=== PATIENT | male | born 1985 | race Caucasian/White ===

== ENCOUNTER → 2019-07-19 | Outpatient (CLI) | payer OTHER ==
[~2019-07-19] MED LIST: ADVAIR IH; ALBUTEROL SULFAT8 MG; AMOXICILLIN 8751 TAB PO; DOLOPHINE HCL5 MG PO; FLEXERIL10 MG PO; FOLIC ACID 11 MG/TA1 PO; K-DUR 10 MEQ T10 MEQ PO; K-DUR20 MEQ PO; LASIX 40MG TABL40 MG PO; LIBRIUM 25M25 MG/CAP PO; MULTI VITAMINS1 TAB PO; MULTIPLE VITAMI1 CAP PO; NEURONTIN300 MG/CAP PO; NO HOME MEDICATIONS; NORCO 325 MG-7.1 TAB PO; NORVASC2.5 MG PO; PHOS LO PO; PROVENTIL0.09 MG/A1 IH; RT ADVAIR 228 DISKUS IH; SODIUM BICARBO650 MG PO; TENORMIN100 MG PO; THIAMINE 1100 MG/TAB PO; ZOLOFT 50MG50 MG PO
== END ==
LOC: COL.VAS 07-08 12:30
DX: N18.4 Chronic kidney disease, stage 4 (severe) (principal)

== ENCOUNTER 2020-01-28 07:08 | Day surgery (SDC) | payer MEDICAID ==
[~2020-01-28] VITALS: Ht 182.9 cm; Wt 105.7 kg
[2020-01-28 08:04] VITALS: BP 188/113; PULSE 59; TEMP 98.2
[2020-01-28 08:35] VITALS: BP 184/98; PULSE 61
--- NOTE | 2020-01-28 08:35 | NUR ---
Pt to GI bay 4 via cart from ENDO. Pt awake and alert. Denies pain or nausea. Water, juice and muffin given per pt request. Will continue to monitor. Call light within reach.
[2020-01-28 08:50] VITALS: BP 185/92; PULSE 60
--- NOTE | 2020-01-28 08:50 | NUR ---
Pt tolerating food and fluids without difficulties. Denies needs. Call light within reach.
[2020-01-28 09:05] VITALS: BP 183/126; PULSE 64
--- NOTE | 2020-01-28 09:05 | NUR ---
Discharge instructions reviewed. Pt voices understanding. IV site discontinued with all parts intact. Pt up to dress. Call light within reach.
--- NOTE | 2020-01-28 09:15 | NUR ---
Pt escorted to private car via wheel chair. Pt accompanied home by his mother.
== END 2020-01-28 09:15 | disposition home or self-care (01) ==
LOC: SDCO 07:08
DX: I85.10 Secondary esophageal varices without bleeding (principal); K70.31 Alcoholic cirrhosis of liver with ascites; K29.30 Chronic superficial gastritis without bleeding; I10 Essential (primary) hypertension; F17.210 Nicotine dependence, cigarettes, uncomplicated; B19.20 Unspecified viral hepatitis C without hepatic coma; J44.9 Chronic obstructive pulmonary disease, unspecified; G89.29 Other chronic pain; Z20.828 Contact with and (suspected) exposure to other viral communicable diseases; G93.40 Encephalopathy, unspecified; Z88.8 Allergy status to other drugs, medicaments and biological substances
CPT/HCPCS: J2704; J7120

== ENCOUNTER 2020-04-04 05:02 | Inpatient (IN) | payer MEDICAID ==
[~2020-04-04] VITALS: Ht 182.9 cm; Wt 93.6 kg
[2020-04-04 05:55] LABS: BASO % 0.6 % (0.0-2.0); EOS % 0.6 % (0-4.0); GRAN # 2.7 (1.4-6.5); GRAN % 75.5 % (42.2-75.2); HEMATOCRIT 37.2 % (42.0-52.0); LYMPH # 0.6 (1.2-3.4); LYMPH % 16.8 % (20.0-51.0); MEAN CELL VOLUME 94 fl (80.0-100.0); MEAN CORPUSCULAR HEMOGLOBIN 33 pg (27.0-31.0); MEAN CORPUSCULAR HGB CONC 35 g/dl (33.0-37.0); MEAN PLATELET VOLUME 10.5 fl (7.4-10.4); MONO # 0.2 (0.1-0.6); MONO % 6.5 % (1.7-9.3); PLATELET COUNT 100 K/mm3 (130-400); RED BLOOD COUNT 3.97 M/mm3 (4.20-5.60); REDCELL DISTRIBUTION WIDTH-CV 14.6 % (11.5-14.5)
[2020-04-04 06:00] LABS: INR 1.6 (0.8-3.0); PROTHROMBIN TIME 18.5 SECONDS (9.7-12.8)
[2020-04-04 06:07] LABS: ALBUMIN 3.8 gm/dL (3.5-5.0); BILIRUBIN,TOTAL 4.2 mg/dL (0.0-1.0); CALCIUM 9.1 mg/dL (8.4-10.2); CREATININE, serum 1.46 (0.66-1.25); POTASSIUM 3.5 mmol/L (3.4-5.0); TOTAL PROTEIN 8.9 gm/dL (6.4-8.2)
[2020-04-04 08:03] LABS: COLLECTION METHOD CLEAN CATCH
[2020-04-04 08:09] LABS: MUCOUS Present /lpf; PH 5 (5-8); SQUAMOUS EPITHELIAL 0-2 /hpf; URINE APPEARANCE Clear; URINE BACTERIA Rare /hpf; URINE BILIRUBIN Negative (NEGATIVE); URINE BLOOD 1+ (NEGATIVE); URINE COLOR Amber; URINE GLUCOSE Negative (NEGATIVE); URINE KETONE Negative (NEGATIVE); URINE LEUKOCYTE ESTERASE Negative (NEGATIVE); URINE NITRATE Negative (NEGATIVE); URINE PROTEIN(semi-quant) 3+ (NEGATIVE); URINE RBC 20-50 /hpf
[2020-04-04 09:55] VITALS: BP 194/122; PULSE 55; TEMP 98.1
--- NOTE | 2020-04-04 10:37 | NUR ---
Patient alert and oriented complain of mid and right qualdrants pain. Patient sbp 193. completed history and assessment with patient. Patient unable to verify and clarify his home medication. plan to speak to patient family with patient approval about home medications. Call light within reach, patient independent with bathroom privilege and room ambulation. Patient requested pain medication for abdominal pain.
--- NOTE | 2020-04-04 11:57 | NUR ---
Patient received 0.25mg of dilaudid for pain, LR 125ml/hr was started. Patient resting in bed.
[2020-04-04 12:46] VITALS: BP 187/106; PULSE 55; TEMP 98.1
[2020-04-04] MEDS ORDERED: PRINIVIL10 MG PO (14:10)
--- NOTE | 2020-04-04 15:26 | NUR ---
Patient unable to verify home medication. Patient advise RN to call his mother for update medication record. Patient's mother was unable to verify medication doses. RN called patient's pcp office to request for medication list. left fax details with doctor's office at this time.
[2020-04-04 17:27] VITALS: BP 153/86; PULSE 70; TEMP 98.1
--- NOTE | 2020-04-04 19:00 | NUR ---
Received report from [facility]. During shift change rounds, patient complains of RUQ abdominal pain with pain score of 7/10. Patient just had Oxycodone at 1634H. Will give Dilaudid.
--- NOTE | 2020-04-04 19:02 | NUR ---
Patient was given zofran for nausea, roxycodone,dilaudid for pain. SCD's for VTE. sbp 150's. GI consult for Cholestasis. report given to night nurseKierra RN.
--- NOTE | 2020-04-04 19:08 | NUR ---
Dilaudid IV given. Patient denies of nausea right now. Assesment done. With IV on right forearm infusing LR at 125ml/hr. Instructed patient that he in NPO by midnight. Informed patient regarding his PRN pain meds schedule.
[2020-04-04 20:47] VITALS: BP 141/79; PULSE 88; TEMP 97.8
--- NOTE | 2020-04-04 21:30 | NUR ---
Patient was transferred to Rm. 356. He states his pain is tolerable right now. Call light within reach.
[2020-04-05] VITALS (9 sets, daily range): BP systolic 118–184; BP diastolic 62–107; PULSE 61–78; TEMP 97.6–98.9
--- NOTE | 2020-04-05 05:57 | NUR ---
Patient still with complains of RUQ abdominal pain. This morning pain score was 7/10. Dilaudid given. He denies episodes of nausea. Maintained on NPO.
--- NOTE | 2020-04-05 09:13 | NUR ---
Pt calling out to nurse desk to speak to nurse. Pt states he is in 7/10 pain to RUQ of abdomen, states after breathing treatment his pain increased w/ coughing. Guarding noted w/ auscultation. Dilaudid PRN administered per may. Assessment completed, pt NPO, to have MRI this morning. Pt A&O, independent in room, on room air, breathing is even and unlabored. LS cta, HRRR. No edema noted. RFA IV w/ LR running, no issues noted. Pt denies any dizziness, N/V/D, chest pain, SOB.
--- NOTE | 2020-04-05 09:23 | NUR ---
LEELEE met with the patient to discuss discharge plan. The patient has been staying with his parents: Do (ph#[phone]) and Jude in [place]. He states that his relationship with his is still good, but his health was too stressful for her, along with work. He reports independence with ADLs and does not have any DME. The patient's primary care provider is Ena Brock APRN at [facility] [place] and he also receives his medications there. The patient does not have a DPOA-HC in EMR, but he thinks that he might have one. He states that if he does have one, he would have designated his or mother. The patient plans to return home to his parents house upon discharge. The patient gave permission for SW to contact his . LEELEE contacted and reviewed the d/c plan with the patient's , Arcelia Canas (ph#[phone]). Arcelia had no concerns for the patient or about him returning back to her in-laws house upon discharge. LEELEE addressed the patient's alcohol and drug abuse. The patient states that he has not used for over a year now. He states that almost dying was a wake up call and that he has great family support that helps him. SW to follow as needed.
[2020-04-05 12:48] LABS: BASO % 0.4 % (0.0-2.0); EOS % 0.8 % (0-4.0); GRAN # 1.4 (1.4-6.5); LYMPH # 0.9 (1.2-3.4); LYMPH % 35.3 % (20.0-51.0); MEAN CELL VOLUME 97 fl (80.0-100.0); MEAN CORPUSCULAR HGB CONC 34 g/dl (33.0-37.0); MEAN PLATELET VOLUME 10.7 fl (7.4-10.4); MONO # 0.2 (0.1-0.6); MONO % 7.1 % (1.7-9.3); PLATELET COUNT 73 K/mm3 (130-400); RED BLOOD COUNT 3.29 M/mm3 (4.20-5.60)
[2020-04-05 12:51] LABS: ALBUMIN 3.2 gm/dL (3.5-5.0); BILIRUBIN,TOTAL 1.8 mg/dL (0.0-1.0); CALCIUM 8.5 mg/dL (8.4-10.2); CREATININE, serum 1.91 (0.66-1.25); POTASSIUM 3.4 mmol/L (3.4-5.0); TOTAL PROTEIN 7.5 gm/dL (6.4-8.2)
[2020-04-05 13:02] LABS: HEMOGLOBIN 10.8 g/dl (13.5-18.0); MEAN CORPUSCULAR HEMOGLOBIN 33 pg (27.0-31.0)
--- NOTE | 2020-04-05 19:20 | NUR ---
Received report from Kimberlee. Patient awake in bed. Still RUQ abdominal pain. Reports pain score of 5-6/10. Denies needs at this time.
--- NOTE | 2020-04-05 21:00 | NUR ---
Patient was able to tolerate clear liquid diet without any nausea or vomiting. Will advance his diet to full liquid as ordered. He said he is very hungry and want to eat something. Provided patient with beef boullion, jello, pudding and yogurt. Informed patient to call if he feel nauseous eating the full liquid diet.
--- NOTE | 2020-04-05 22:00 | NUR ---
Patient was able to finish his food without any problems. No episode of nausea. Still with pain but reports to be tolerable.
--- NOTE | 2020-04-05 23:38 | NUR ---
Patient complaining of RUQ abdominal pain. Dilaudid given. He was complaining for headache as well. Blood pressure was 173/93. He was asking if there is an order for nicotine patch. He was thinking he might need it that's why he is having a headache but he is worried that it the patch may make his blood pressure high. Informed him there are no orders but I can ask for one. He said that he will just wait for the Dilaudid to take effect and it might help with his headache as well.
[2020-04-06 00:20] VITALS: BP 165/93
--- NOTE | 2020-04-06 00:21 | NUR ---
Patient states headache is gone but still with abdominal pain. Pain score of 5/10. Rechecked his blood pressure and it's now at 165/93.
[2020-04-06 03:02] VITALS: BP 164/84; PULSE 69; TEMP 98.3
--- NOTE | 2020-04-06 06:04 | NUR ---
Patient still with RUQ abdominal pain. Dilaudid given. He said Oxycodone doensn't work for him. No episodes of nausea.
[2020-04-06 07:21] LABS: BASO % 0.4 % (0.0-2.0); EOS % 1.7 % (0-4.0); GRAN # 1.1 (1.4-6.5); GRAN % 48.3 % (42.2-75.2); HEMOGLOBIN 10.1 g/dl (13.5-18.0); LYMPH % 41.1 % (20.0-51.0); MEAN CELL VOLUME 98 fl (80.0-100.0); MEAN CORPUSCULAR HEMOGLOBIN 33 pg (27.0-31.0); MEAN CORPUSCULAR HGB CONC 33 g/dl (33.0-37.0); MEAN PLATELET VOLUME 10.6 fl (7.4-10.4); MONO # 0.2 (0.1-0.6); MONO % 8.5 % (1.7-9.3); PLATELET COUNT 70 K/mm3 (130-400); RED BLOOD COUNT 3.08 M/mm3 (4.20-5.60); REDCELL DISTRIBUTION WIDTH-CV 14.9 % (11.5-14.5)
[2020-04-06 07:26] LABS: HEMATOCRIT 30.3 % (42.0-52.0)
[2020-04-06 07:35] VITALS: BP 176/91; PULSE 67; TEMP 98.1
[2020-04-06 07:38] LABS: BILIRUBIN,TOTAL 1.9 mg/dL (0.0-1.0); CALCIUM 8.4 mg/dL (8.4-10.2); CREATININE, serum 2.03 (0.66-1.25); POTASSIUM 3.4 mmol/L (3.4-5.0); TOTAL PROTEIN 7.3 gm/dL (6.4-8.2)
[2020-04-06] MEDS ORDERED: NORVASC 5MG5 MG/TAB PO (10:01)
[2020-04-06] MEDS ORDERED: AMOXICILLIN 8751 TAB PO (10:08)
--- NOTE | 2020-04-06 10:19 | NUR ---
Pt assessment completed and charted, medications administered per may. pt sitting in bed, denies dizziness, N/V/D, chest pain, SOB. Pt c/o some Rt sd abdominal pain but states it has "improved quite a bit from yestrday". Pt requested pain medication, PO pain medication administered per may. Pt has RFA INT IV that flushes w/o issue. LFA fistula in place, per pt never accessed, site looks good, bruit and thrill present. Pt on room air, breathing is even and unlabored. Pt independent in room. No further needs at this time. Call light within reach.
[2020-04-06 12:01] VITALS: BP 167/99; PULSE 70; TEMP 97.5
--- NOTE | 2020-04-06 12:45 | NUR ---
Pt sitting in recliner, eating lunch, diet advanced, tolerating well. Pt has no complaints of pain at this time. Call light within reach.
--- NOTE | 2020-04-06 12:48 | NUR ---
First visit from the acid cutter. No needs right now.
[2020-04-06 15:51] VITALS: BP 173/99; PULSE 61; TEMP 97.8
--- NOTE | 2020-04-06 17:18 | NUR ---
Pt discharge instructions discussed and reviewed w/ patient who verbalized understanding, all questions answered. RFA INT IV dc'd w/ cath tip intact and no issues noted. Pt escorted out via ambulatory with this nurse. Mom arrived in private vehicle to take pt home.
== END 2020-04-06 17:22 | disposition home or self-care (01) | DRG 444 ==
LOC: COL.ER 05:02 → MEDICAL 08:25
PROVIDERS: Emergency Medicine; Physician Assistant; ADMIT Student in an Organized Health Care Education/Training Program
DX: K80.10 Calculus of gallbladder with chronic cholecystitis without obstruction (principal); E43 Unspecified severe protein-calorie malnutrition; K76.6 Portal hypertension; I85.10 Secondary esophageal varices without bleeding; E87.2 Acidosis; R18.8 Other ascites; J90 Pleural effusion, not elsewhere classified; J98.11 Atelectasis; N17.9 Acute kidney failure, unspecified; K74.60 Unspecified cirrhosis of liver; B19.20 Unspecified viral hepatitis C without hepatic coma; I16.0 Hypertensive urgency; D63.1 Anemia in chronic kidney disease; J44.9 Chronic obstructive pulmonary disease, unspecified; D69.6 Thrombocytopenia, unspecified; I12.9 Hypertensive chronic kidney disease with stage 1 through stage 4 chronic kidney disease, or unspecified chronic kidney disease; N18.30 Chronic kidney disease, stage 3 unspecified; E83.39 Other disorders of phosphorus metabolism; F17.210 Nicotine dependence, cigarettes, uncomplicated; Z20.822 Contact with and (suspected) exposure to COVID-19; Z68.28 Body mass index [BMI] 28.0-28.9, adult
CPT/HCPCS: 99223-AI; 99232-AI; 99239; C9113; J0360; J1170; J1200; J2270; J2405; J2543; J7040; J7120; Q9967

== ENCOUNTER 2020-05-30 04:48 | Emergency (ER) | payer MEDICAID ==
[~2020-05-30] VITALS: Ht 182.9 cm; Wt 93.6 kg
[~2020-05-30 04:48] MED LIST changes: +NORVASC 5MG5 MG/TAB PO; +PRINIVIL10 MG PO
[2020-05-30 04:54] VITALS: TEMP 99.6
[2020-05-30 05:32] LABS: BASO % 0.5 % (0.0-2.0); EOS % 0.3 % (0-4.0); GRAN # 4.3 (1.4-6.5); GRAN % 67.9 % (42.2-75.2); HEMATOCRIT 41.2 % (42.0-52.0); HEMOGLOBIN 14.5 g/dl (13.5-18.0); LYMPH # 1.7 (1.2-3.4); LYMPH % 27.3 % (20.0-51.0); MEAN CELL VOLUME 96 fl (80.0-100.0); MEAN CORPUSCULAR HEMOGLOBIN 34 pg (27.0-31.0); MEAN CORPUSCULAR HGB CONC 35 g/dl (33.0-37.0); MEAN PLATELET VOLUME 10.3 fl (7.4-10.4); MONO # 0.2 (0.1-0.6); MONO % 3.8 % (1.7-9.3); PLATELET COUNT 111 K/mm3 (130-400); RED BLOOD COUNT 4.31 M/mm3 (4.20-5.60); REDCELL DISTRIBUTION WIDTH-CV 13.6 % (11.5-14.5)
[2020-05-30 05:45] LABS: ALBUMIN 4.1 gm/dL (3.5-5.0); CALCIUM 8.9 mg/dL (8.4-10.2); CREATININE, serum 1.56 (0.66-1.25); POTASSIUM 4.7 mmol/L (3.4-5.0); TOTAL PROTEIN 9.1 gm/dL (6.4-8.2)
[2020-05-30 06:58] LABS: INR 1.1 (0.8-3.0); PROTHROMBIN TIME 12.8 SECONDS (9.7-12.8)
[2020-05-30 09:36] VITALS: BP 130/88; PULSE 61
[2020-08-04] MEDS ORDERED: ZOLOFT 50MG50 MG PO (15:44)
== END 2020-05-30 09:36 | disposition short-term general hospital (02) ==
LOC: COL.ER 04:48 → EDSEX 08:48 → COL.ER 08:48
PROVIDERS: Family Medicine
DX: K80.20 Calculus of gallbladder without cholecystitis without obstruction (principal); Z88.4 Allergy status to anesthetic agent; Z20.822 Contact with and (suspected) exposure to COVID-19
CPT/HCPCS: J1170; J1200; J2405; J2765; J7030

== ENCOUNTER 2020-07-13 10:23 | Outpatient (CLI) | payer MEDICAID ==
[~2020-07-13] VITALS: Ht 182.9 cm; Wt 111.0 kg
[2020-07-13] MEDS ORDERED: CIPRO 250MG TA250 MG PO (10:44)
[2020-07-13 10:47] VITALS: BP 150/72; PULSE 77
--- NOTE | 2020-07-13 12:10 | NUR ---
called and let marcelina know abouit the albumin infusion after para
--- NOTE | 2020-07-13 13:45 | NUR ---
Pt tolerates infusion without issue. IV DC'd with catheter intact. Pt ambulates out from dept with steady gait, stating he feels much better following paracentesis.
[2020-08-04] MEDS ORDERED: ZOLOFT 50MG50 MG PO (15:44)
== END 2020-07-13 15:02 | disposition home or self-care (01) ==
LOC: EDSEX 10:23 → COL.RAD 10:23 → EUO 10:23 → COL.RAD 10:30
DX: K70.31 Alcoholic cirrhosis of liver with ascites (principal); B19.20 Unspecified viral hepatitis C without hepatic coma; Z79.899 Other long term (current) drug therapy
CPT/HCPCS: P9047

== ENCOUNTER 2020-08-07 11:46 | Outpatient (CLI) | payer MEDICAID ==
[~2020-08-07] VITALS: Ht 182.9 cm; Wt 114.9 kg
[2020-08-07 09:00] VITALS: BP 149/96; PULSE 70
[2020-08-07 11:17] VITALS: BP 122/65; PULSE 67
[~2020-08-07 11:46] MED LIST changes: +CIPRO 250MG TA250 MG PO
[2020-08-07 13:19] LABS: PERITONEAL -POLYMORPHONUCLEAR 2.2 % (0-25); PERITONEAL FLUID RBC 1000 /mm3 (0-0)
--- NOTE | 2020-08-07 13:57 | NUR ---
Pt tolerated albumin without issue. IV DC'd with catheter intact. He was assisted out to waiting room by wheelchair.
== END 2020-08-07 13:58 | disposition home or self-care (01) ==
LOC: COL.RAD 11:46 → EDSEX 11:46 → COL.RAD 13:58
PROVIDERS: Internal Medicine Gastroenterology
DX: B19.20 Unspecified viral hepatitis C without hepatic coma (principal)
CPT/HCPCS: P9047

== ENCOUNTER 2020-08-25 08:51 | Outpatient (CLI) | payer MEDICAID ==
--- NOTE | 2020-08-23 08:33 | NUR ---
lmom and call back number
[~2020-08-25] VITALS: Ht 182.9 cm; Wt 117.0 kg
[2020-08-25 09:03] VITALS: BP 154/93; PULSE 81
[2020-08-25 11:36] VITALS: BP 122/64; PULSE 63
[2020-08-25 11:40] LABS: PERITONEAL -POLYMORPHONUCLEAR 2.1 % (0-25); PERITONEAL FLUID RBC 1000 /mm3 (0-0)
== END 2020-08-25 14:52 | disposition home or self-care (01) ==
LOC: COL.RAD 08:51 → EDSEX 08:51 → COL.RAD 09:00
PROVIDERS: Internal Medicine Gastroenterology
DX: K74.60 Unspecified cirrhosis of liver (principal); B19.20 Unspecified viral hepatitis C without hepatic coma
CPT/HCPCS: P9047

== ENCOUNTER 2020-09-08 09:09 | Outpatient (CLI) | payer MEDICAID ==
[~2020-09-08] VITALS: Ht 182.9 cm; Wt 110.8 kg
[2020-09-08 09:24] VITALS: BP 132/90; PULSE 86
[2020-09-08] MEDS ORDERED: ZOLOFT 50MG50 MG PO (09:24)
[2020-09-08 13:45] VITALS: BP 122/74; PULSE 70
== END 2020-09-08 19:20 | disposition home or self-care (01) ==
LOC: COL.RAD 09:09 → EDSEX 09:09 → COL.RAD 19:20
DX: B19.20 Unspecified viral hepatitis C without hepatic coma (principal); K74.60 Unspecified cirrhosis of liver
CPT/HCPCS: P9047

== ENCOUNTER 2020-09-22 06:54 | Outpatient (CLI) | payer MEDICAID ==
[~2020-09-22] VITALS: Ht 182.9 cm; Wt 122.7 kg
[2020-09-22] MEDS ORDERED: VITAMIN D250 MCG PO (07:24)
[2020-09-22] MEDS ORDERED: VITAMIN D31000 I1 PO (07:25)
[2020-09-22 07:28] VITALS: BP 144/87; PULSE 79
[2020-09-22 10:45] VITALS: BP 125/67; PULSE 83
[2020-09-22 13:00] VITALS: BP 112/78; PULSE 77
[2020-09-22 14:00] VITALS: BP 116/72; PULSE 77
== END 2020-09-22 14:30 | disposition home or self-care (01) ==
LOC: COL.RAD 06:54 → EDSEX 06:54 → COL.RAD 14:30
DX: B19.20 Unspecified viral hepatitis C without hepatic coma (principal); K74.60 Unspecified cirrhosis of liver
CPT/HCPCS: P9047

== ENCOUNTER 2020-10-04 07:35 | Emergency (ER) | payer MEDICAID ==
[~2020-10-04] VITALS: Ht 182.9 cm; Wt 102.3 kg
[~2020-10-04 07:35] MED LIST changes: +VITAMIN D250 MCG PO; +VITAMIN D31000 I1 PO
[2020-10-04 07:51] VITALS: TEMP 97.8
[2020-10-04 08:34] LABS: BASO % 0.3 % (0.0-2.0); GRAN # 3.2 (1.4-6.5); GRAN % 82.1 % (42.2-75.2); LYMPH # 0.5 (1.2-3.4); LYMPH % 13.7 % (20.0-51.0); MEAN CELL VOLUME 93 fl (80.0-100.0); MEAN CORPUSCULAR HGB CONC 33 g/dl (33.0-37.0); MEAN PLATELET VOLUME 9.6 fl (7.4-10.4); MONO # 0.1 (0.1-0.6); MONO % 3.6 % (1.7-9.3); PLATELET COUNT 151 K/mm3 (130-400); RED BLOOD COUNT 3.18 M/mm3 (4.20-5.60); REDCELL DISTRIBUTION WIDTH-CV 15.9 % (11.5-14.5)
[2020-10-04 08:36] LABS: HEMATOCRIT 29.5 % (42.0-52.0); HEMOGLOBIN 9.6 g/dl (13.5-18.0); MEAN CORPUSCULAR HEMOGLOBIN 30 pg (27.0-31.0)
[2020-10-04 08:42] LABS: INR 1.2 (0.8-3.0); PROTHROMBIN TIME 13.8 SECONDS (9.7-12.8)
[2020-10-04 08:43] LABS: CALCIUM 8.7 mg/dL (8.4-10.2); CREATININE, serum 3.2 (0.66-1.25); POTASSIUM 4.6 mmol/L (3.4-5.0); TOTAL PROTEIN 6.8 gm/dL (6.4-8.2)
[2020-10-04 15:51] VITALS: BP 174/128; PULSE 75
== END 2020-10-04 15:51 | disposition home or self-care (01) ==
LOC: COL.ER 07:35 → EDSEX 07:35 → COL.ER 15:51
PROVIDERS: Emergency Medicine
DX: K70.31 Alcoholic cirrhosis of liver with ascites (principal); F10.20 Alcohol dependence, uncomplicated; I12.9 Hypertensive chronic kidney disease with stage 1 through stage 4 chronic kidney disease, or unspecified chronic kidney disease; N18.9 Chronic kidney disease, unspecified
CPT/HCPCS: J1170; J2405

== ENCOUNTER → 2020-10-20 | Outpatient (CLI) | payer MEDICAID ==
[~2020-10-20] VITALS: Ht 182.9 cm; Wt 105.0 kg
[~2020-10-20] MED LIST changes: +ATIVAN 1MG T1 MG/TAB PO; +DULCOLAX S10 MG/SUPP RC; +FLEET ENEM1 BOT/133 RC; +ROXANOL 20MG20 MG/ML PO; +ROXANOL 20MG20 MG/ML SL; +SYSTANE 0.3-0.1 EACH OP; +TRANSDERM-0.5 MG/21 TD; +ZOFRAN ODT4 MG PO
[2020-10-20 09:41] VITALS: BP 156/99; PULSE 93; TEMP 98.2
[2020-10-20 11:40] VITALS: BP 134/82; PULSE 86
== END ==
LOC: EDSEX 09:00 → COL.RAD 09:00 → EDSEX 09:45
DX: K74.60 Unspecified cirrhosis of liver (principal); B19.20 Unspecified viral hepatitis C without hepatic coma
CPT/HCPCS: 19804

== ENCOUNTER 2020-11-03 09:49 | Emergency (ER) | payer MEDICAID ==
[~2020-11-03] VITALS: Ht 182.9 cm; Wt 90.9 kg
[~2020-11-03 09:49] MED LIST changes: -ATIVAN 1MG T1 MG/TAB PO; -DULCOLAX S10 MG/SUPP RC; -FLEET ENEM1 BOT/133 RC; -ROXANOL 20MG20 MG/ML PO; -ROXANOL 20MG20 MG/ML SL; -SYSTANE 0.3-0.1 EACH OP; -TRANSDERM-0.5 MG/21 TD; -ZOFRAN ODT4 MG PO
[2020-11-03 09:52] VITALS: TEMP 98.9
[2020-11-03 14:58] VITALS: BP 130/76; PULSE 73
== END 2020-11-03 14:58 | disposition home or self-care (01) ==
LOC: COL.ER 09:49
DX: S01.81XA Laceration without foreign body of other part of head, initial encounter (principal); S40.011A Contusion of right shoulder, initial encounter; K70.31 Alcoholic cirrhosis of liver with ascites; I12.9 Hypertensive chronic kidney disease with stage 1 through stage 4 chronic kidney disease, or unspecified chronic kidney disease; N18.9 Chronic kidney disease, unspecified; J44.9 Chronic obstructive pulmonary disease, unspecified; F17.210 Nicotine dependence, cigarettes, uncomplicated; Z99.2 Dependence on renal dialysis; Z79.899 Other long term (current) drug therapy; W01.10XA Fall on same level from slipping, tripping and stumbling with subsequent striking against unspecified object, initial encounter; Y93.01 Activity, walking, marching and hiking; Y92.531 Health care provider office as the place of occurrence of the external cause
CPT/HCPCS: J2270; J2405

== ENCOUNTER → 2020-11-03 | Outpatient (CLI) | payer MEDICAID ==
[~2020-11-03] VITALS: Ht 182.9 cm; Wt 105.0 kg
[2020-11-03 09:21] VITALS: BP 153/90; PULSE 92; TEMP 98
--- NOTE | 2020-11-03 10:01 | NUR ---
pt tripped, fell and has a laceration to his forehead. staff took pt to er for treatment. para was completed and pt remains in er.
== END ==
LOC: EDSEX 09:00 → COL.RAD 09:00
DX: K74.60 Unspecified cirrhosis of liver (principal); B19.20 Unspecified viral hepatitis C without hepatic coma
CPT/HCPCS: 19804

== ENCOUNTER 2020-11-17 12:16 | Outpatient (CLI) | payer MEDICAID ==
[~2020-11-17] VITALS: Ht 182.9 cm; Wt 102.0 kg
[2020-11-17 12:23] VITALS: BP 148/99; PULSE 95; TEMP 97.9
--- NOTE | 2020-11-17 15:06 | NUR ---
PT REQUESTS ONLY TWO BAGS OF ALBUMIN TO BE INFUSED.
[2020-11-17 15:35] VITALS: BP 135/81; PULSE 90
--- NOTE | 2020-11-17 16:44 | NUR ---
Pt refused to finish albumin bags as ordered.Per pt he gets cramps if he received"too much." Radha alatorre removed INT as requested,catheter tip intact.Pt escorted out via wheelchair by this nurse.
== END 2020-11-17 16:46 ==
LOC: COL.RAD 12:16
DX: K74.60 Unspecified cirrhosis of liver (principal); B19.20 Unspecified viral hepatitis C without hepatic coma
CPT/HCPCS: P9047

== ENCOUNTER 2020-11-28 16:19 | Inpatient (IN) | payer MEDICAID ==
[~2020-11-28] VITALS: Ht 180.3 cm; Wt 75.8 kg
[2020-11-28] VITALS (59 sets, daily range): BP systolic 156; BP diastolic 102; PULSE 119; TEMP 98; O2SAT 84–100
[2020-11-28 18:01] LABS: LACTIC ACID 3.4 mmol/L (0.4-2.0)
[2020-11-28 18:06] LABS: BASO % 0.2 % (0.0-2.0); GRAN # 12.5 (1.4-6.5); GRAN % 88.4 % (42.2-75.2); HEMOGLOBIN 12.1 g/dl (13.5-18.0); LYMPH # 0.7 (1.2-3.4); LYMPH % 4.8 % (20.0-51.0); MEAN CELL VOLUME 86 fl (80.0-100.0); MEAN CORPUSCULAR HEMOGLOBIN 29 pg (27.0-31.0); MEAN CORPUSCULAR HGB CONC 34 g/dl (33.0-37.0); MEAN PLATELET VOLUME 8.5 fl (7.4-10.4); MONO # 0.8 (0.1-0.6); MONO % 5.8 % (1.7-9.3); PLATELET COUNT 269 K/mm3 (130-400); RED BLOOD COUNT 4.19 M/mm3 (4.20-5.60); REDCELL DISTRIBUTION WIDTH-CV 14.1 % (11.5-14.5)
[2020-11-28 18:13] LABS: INR 1.4 (0.8-3.0); PROTHROMBIN TIME 15.4 SECONDS (9.7-12.8)
[2020-11-28 18:15] LABS: ALANINE AMINOTRANSFERASE 41 U/L (4-49); ALBUMIN 2.7 gm/dL (3.5-5.0); ALKALINE PHOSPHATASE 111 U/L (50-136); ANION GAP 11 mmol/L (7-16); AST,SGOT 36 U/L (15-37); BILIRUBIN,TOTAL 2.6 mg/dL (0.0-1.0); BLOOD UREA NITROGEN 88 mg/dL (9-20); CALCIUM 8.6 mg/dL (8.4-10.2); CARBON DIOXIDE 17 mmol/L (22-30); CHLORIDE 96 mmol/L (98-107); CREATININE, serum 4.26 (0.66-1.25); GLUCOSE 101 mg/dL (74-106); PARTIAL THROMBOPLASTIN TIME 32.8 SECONDS (26.0-37.0); SODIUM 124 mmol/L (137-145); TOTAL PROTEIN 6.7 gm/dL (6.4-8.2)
[2020-11-28 18:18] LABS: ALCOHOL(ethanol),MEDICAL < 10 mg/dL; POTASSIUM 7.1 mmol/L (3.4-5.0)
--- NOTE | 2020-11-28 21:40 | NUR ---
Patient arrived to unit with RN, Jenny transferred to bed with 3 assist, Lab here to obtain ordered labs, patient intermittently yelling at staff and then obtunded, unable to state name or responds to noxious stimuli only
[2020-11-28 22:29] LABS: CALCIUM 7.4 mg/dL (8.4-10.2); CREATININE, serum 3.68 (0.66-1.25)
[2020-11-28 22:39] LABS: POTASSIUM 6.3 mmol/L (3.4-5.0)
[2020-11-29] VITALS (662 sets, daily range): BP systolic 108–156; BP diastolic 64–98; PULSE 79–111; TEMP 9.9; O2SAT 71–100
--- NOTE | 2020-11-29 00:30 | NUR ---
PATIENT'S FATHER YEN BRODY PHONED FOR UPDATES VERIFIED PATIENT INFORMATION WITH FULL NAME AND , GIVEN UPDATE ON CONDITION AND INTERVENTIONS PREFORMED AND PLANNED, ASKED ABOUT VISITING POLICY INFORMED OF CURRENT POLICY THAT IT WAS ONE DESIGNATED PERSON FOR THE LENGTH OF THE STAY FROM 8AM TO 8PM, DISSATISFIED WITH THIS STATES THAT HE KNOWS THAT HIS SON DOES NOT HAVE A LONG TIME LEFT AND THAT HE NEEDED TO MAKE HIS PEACE WITH HIM, REINTERATED VISITATION POLICY AND INFORMED THAT ONLY EXCEPTION WAS IN CASES OF TRANSITION TO COMFORT CARE, PATIENT'S FATHER THEN HUNG UP PHONE.
--- NOTE | 2020-11-29 02:00 | NUR ---
SPOKE WITH JAMESON JOHNSON REGARDING EGD FOR THIS AM, STATED THAT DR. AGUIRRE HAD SPOKEN WITH SISTER (JOSSY) REGARDING PROCEDURE WHEN THEY WERE IN ED
[2020-11-29 04:30] LABS: BASO % 0.1 % (0.0-2.0); GRAN # 6.9 (1.4-6.5); GRAN % 82.2 % (42.2-75.2); LYMPH # 0.7 (1.2-3.4); LYMPH % 7.7 % (20.0-51.0); MEAN CELL VOLUME 88 fl (80.0-100.0); MEAN CORPUSCULAR HGB CONC 34 g/dl (33.0-37.0); MEAN PLATELET VOLUME 8.9 fl (7.4-10.4); MONO # 0.8 (0.1-0.6); MONO % 9.4 % (1.7-9.3); PLATELET COUNT 188 K/mm3 (130-400); REDCELL DISTRIBUTION WIDTH-CV 14.1 % (11.5-14.5)
[2020-11-29 04:31] LABS: HEMATOCRIT 29.1 % (42.0-52.0); HEMOGLOBIN 9.8 g/dl (13.5-18.0); MEAN CORPUSCULAR HEMOGLOBIN 30 pg (27.0-31.0)
[2020-11-29 04:43] LABS: ALBUMIN 2.1 gm/dL (3.5-5.0); CALCIUM 7.9 mg/dL (8.4-10.2); CREATININE, serum 4.17 (0.66-1.25); MAGNESIUM 2.4 mg/dL (1.6-2.3); TOTAL PROTEIN 5.6 gm/dL (6.4-8.2)
[2020-11-29 04:46] LABS: POTASSIUM 6.5 mmol/L (3.4-5.0)
--- NOTE | 2020-11-29 04:50 | NUR ---
SPOKE WITH E CARE NURSEAZRA INFORMED OF INCREASED POTASSIUM LEVEL AND TRENDS THAT HAVE OCCURED SINCE ADMIT, WELL INTERVENTIONS PREFORMED REQUESTED THAT RETURN CALL FOR IN 30 MINUTES OF ASK HOSPITALIST TO REPEAT "COCKTAIL" AGAIN
--- NOTE | 2020-11-29 06:00 | NUR ---
0600 PATIENT BECAME AGITATED AND COMBATIVE REQUIRING ONE ON ONE WITH PATIENT TO KEEP HIM SAFE 0620 UNABLE TO CALM PATIENT DOWN AND PLACED CALL TO [place] ([facility]) FOR ASSISTANCE, ORDERS GIVEN FOR ATIVAN AND PRECEDEX DURING THIS TIME NOTED THAT IV TO RIGHT WRIST HAD BECOME DISLODGED, TWO ADDITONAL IV'S INSERTED IN RIGHT FOREARM PROXIMAL BUT NOT IN SAME VEIN TO PREVIOUS ONE AND RIGHT AC, MEDICATIONS GIVEN ORDERED (SEE MAR) 0710 TITRATION OF PRECEDEX TO ACHIEVE GOAL RASS
--- NOTE | 2020-11-29 07:54 | NUR ---
SPOKE WITH PATIENT FATHER AND OBTAINED CONSENT FOR EGD AND PARACENTESIS WELL BLOOD ADMINISTRATION IF NECESSARY UPDATED FATHER ON EVENTS OF OVERNIGHT FATHER ALSO STATES THAT PATIENT WAS DUE TO HAVE PARACENTESIS ON FRIDAY 12/01 AND THAT HE HAS ONLY HAD DIALYSIS TWICE THRU A TEMPORARY HD CATHETER
--- NOTE | 2020-11-29 09:23 | NUR ---
BEDSIDE AND UPDATED PT'S MOTHER. CALLED FOR CONSULT FOR HD CATH, STATES WILL TAKE CARE OF.
--- NOTE | 2020-11-29 09:28 | NUR ---
PT PREVIOUSLY VERY AGITATED AND PULLED OUT IVS. PRECEDEX STARTED. PT NOW RESTING. WILL CONITNUE TO PIERO.
[2020-11-29 09:36] LABS: CALCIUM 8.1 mg/dL (8.4-10.2); CREATININE, serum 4.42 (0.66-1.25); POTASSIUM 5.7 mmol/L (3.4-5.0)
[2020-11-29 09:38] LABS: INR 1.6 (0.8-3.0); PROTHROMBIN TIME 17.7 SECONDS (9.7-12.8)
--- NOTE | 2020-11-29 09:51 | NUR ---
I spoke with pt's mother, Do, concerning DPOA. She stated that she was making decisions for her son. On further discussion she stated that she did not have formal paperwork establishing her as DPOA. Pt is currently but from his . Pt's mother confirmed that the pt is not from this . Instructed mother that at this time his is the next of kin and will be making the medical decisions. Arcelia, pt's , work phone is [phone]. Hina ZIMMERMAN notified of information discussed.
[2020-11-29 10:11] LABS: IRON,SERUM < 10 ug/dL (35-150)
[2020-11-29 10:20] LABS: TOTAL IRON BINDING CAPACITY 163 ug/dL (261-462)
--- NOTE | 2020-11-29 11:00 | NUR ---
Dr. Lopes in to see patient. requested my assistance to get [facility] Pallitaive Care RN consulted and updated to have a goals of care discussion with the patients and mother.
--- NOTE | 2020-11-29 11:50 | NUR ---
FAMILY HAS DECIDED TO GO COMFORT CARE. HOSPITALIST, , , , ENDO, AND ULTRASOUND NOTIFIED.
--- NOTE | 2020-11-29 11:50 | NUR ---
Notified DR. Eldridge and updated Dr. Lopes on families descsion to go palliative care and cancel today's procedures. Also discused with Dr. Patel as he was coming to see patient for a procedure.
--- NOTE | 2020-11-29 12:36 | NUR ---
Wall Washer met with patient's mother Do at bedside as patient is not alert and oriented at this time. Patient lives with his mother, Do in [place] and goes to [facility] in for primary care. Patient obtains medications from [facility] and does not normally use any DME. Do advised that patient is normally independent with ADLS. Patient does not have Advance Directives and his legal next of kin is his , Jammie even though they are currently . LEELEE explained to Do that Jammie would be legal decision maker for patient at this time and Do verbalized understanding. Do advised that the best number to reach Jammie at is her work phone number, #[phone]. After completing intake, LEELEE spoke with Erica Almanza, Palliative RN who met with patient's mother Do and , Jammie was on speakerphone. Per Erica, patient's family has decided to pursue comfort care and want patient to return home on hospice. Erica has contacted Junior at [facility] who will meet with patient's family today. LEELEE to follow to coordinate discharge plan.
--- NOTE | 2020-11-29 13:58 | NUR ---
Notified of request by Dr Lopes to come talk with family about comfort care/ palliative care for Db. I talked with his mother in person and with his by phone after his mother updated his on what was happening and that Dr Lopes had said we could keep him alive for several weeks doing test and procedures but in the end he would go through a lot of pain/discomfort and still not survive. I talked with both of them about hospice care, where it can be provided, what it would include, and what that care would look like in the various settings. They did decide that they would like to move forward with hospice care and requested to use [facility] in their home. I contacted Junior with [facility] and made the referral. He was here around 1245 to talk with both , who just arrived at the hospital, and mother in the patient's room. We are probably looking at admission tomorrow with him returning home by ambulance. I also spoke with Payal about this new plan.
--- NOTE | 2020-11-29 14:46 | NUR ---
Training And Development Officer spoke with Junior at [facility] who advised he met patient's family and plan will be for patient to be admitted tomorrow. Per Erica Palliative RN, patient will require EMS transport.
--- NOTE | 2020-11-29 19:30 | NUR ---
Patient resting in bed with eyes closed. Resp even and non labored. Will monitor for PRN needs. Call light in reach.
--- NOTE | 2020-11-29 22:00 | NUR ---
Patient restless, cries out, and pulls at bedding. PRN medications given. Patient incontient of stool, care provided and linens changed. Unable to follow commands and speech incomprehendible. Emotional support offered.
[2020-11-30] VITALS (343 sets, daily range): O2SAT 94–99
--- NOTE | 2020-11-30 02:45 | NUR ---
Restless, cries out. Continues to have hiccups off and on. PRN medications given, will monitor for need of additional meds. Call light at side and bed alarms on.
--- NOTE | 2020-11-30 07:00 | NUR ---
PT RESTING IN BED. PT MOVES OCCASIONALLY BUT DOES NOT OPEN EYES OR FOLLOW COMMANDS. PT COMFORT CARE AND PLAN TO DC TO HOSPICE TODAY. UPDATED.
--- NOTE | 2020-11-30 08:25 | NUR ---
ISAAC UPDATED VIA PHONE, AWAITING SOCIAL WORK FOR DC SETUP TO HOME WITH HOSPICE.
--- NOTE | 2020-11-30 09:39 | NUR ---
BEDSIDE. EDDIE PATTERN MAKER PROGRAMER BEDSIDE AND UPDATING . PLAN TO DC HOME WITH HOSPICE AT 1300.
[2020-11-30] MEDS ORDERED: TRANSDERM-0.5 MG/21 TD (10:00)
[2020-11-30] MEDS ORDERED: ZOFRAN ODT4 MG PO (10:01)
[2020-11-30] MEDS ORDERED: SYSTANE 0.3-0.1 EACH OP (10:02)
[2020-11-30] MEDS ORDERED: FLEET ENEM1 BOT/133 RC (10:03)
[2020-11-30] MEDS ORDERED: DULCOLAX S10 MG/SUPP RC (10:03)
[2020-11-30] MEDS ORDERED: ROXANOL 20MG20 MG/ML SL (10:04)
[2020-11-30] MEDS ORDERED: ATIVAN 1MG T1 MG/TAB PO ×2 (10:04→10:30)
[2020-11-30] MEDS ORDERED: ROXANOL 20MG20 MG/ML PO (10:30)
--- NOTE | 2020-11-30 12:06 | NUR ---
DISCHARGE INSTRUCTIONS DISCUSSED WITH PTS ISAAC. ALL QUESTIONS ANSWERED. IV'S, TELE, AND HD CATH REMOVED. AWAITING EMS FOR TRANSPORT HOME FOR DISCHARGE.
--- NOTE | 2020-11-30 12:45 | NUR ---
PT PICKED UP BY EMS FOR DISCHARGE HOME. PT'S ISAAC FOLLOWING. PAPERWORK AND REPORT GIVEN TO EMS.
--- NOTE | 2020-11-30 12:47 | NUR ---
Machine Driller attended clinical rounds with the team and patient to discharge home on Hospice today. LEELEE coordinated with Junior from [facility] and patient's family to set transport time for 1230. LEELEE ensured patient's , Arcelia and mother, Do were aware of discharge time. LEELEE scheduled with [facility] and completed EMS transfer forms. LEELEE faxed discharge orders to Junior at [facility]. Patient to discharge today to his parents home with services from [facility].
== END 2020-11-30 12:45 | disposition hospice, home (50) | DRG 441 ==
LOC: COL.ER 16:19 → ICU 19:09
PROVIDERS: Student in an Organized Health Care Education/Training Program; ADMIT Student in an Organized Health Care Education/Training Program
PROC: 02HV33Z Insertion of Infusion Device into Superior Vena Cava, Percutaneous Approach (ICD-10-PCS; principal; 2020-11-29)
DX: K72.00 Acute and subacute hepatic failure without coma (principal); E43 Unspecified severe protein-calorie malnutrition; G93.41 Metabolic encephalopathy; I85.00 Esophageal varices without bleeding; N17.9 Acute kidney failure, unspecified; F11.20 Opioid dependence, uncomplicated; E87.2 Acidosis; E87.1 Hypo-osmolality and hyponatremia; K92.0 Hematemesis; Z68.1 Body mass index [BMI] 19.9 or less, adult; K70.31 Alcoholic cirrhosis of liver with ascites; E87.5 Hyperkalemia; N18.9 Chronic kidney disease, unspecified; I12.9 Hypertensive chronic kidney disease with stage 1 through stage 4 chronic kidney disease, or unspecified chronic kidney disease; J45.909 Unspecified asthma, uncomplicated; F17.210 Nicotine dependence, cigarettes, uncomplicated; J44.9 Chronic obstructive pulmonary disease, unspecified; K44.9 Diaphragmatic hernia without obstruction or gangrene; Z51.5 Encounter for palliative care
CPT/HCPCS: 99223-AI; 99233-AI; 99239; C1751; C9113; J0610; J1815; J1940; J2060; J2270; J2354; J2405; J2543; J3370; J3411; J7030; J7040; J7050